=== PATIENT | female | born 1990 | race Asian ===

== ENCOUNTER 2023-04-11 09:39 | Outpatient (CLI) | payer MEDICAID, OTHER ==
[~2023-04-11 09:39] MED LIST: iohexol 300 MG/1 ML 50ml polymer ONE; iohexol 300mg/ml 100ml inj. ONE
== END 2023-04-11 23:59 | disposition home or self-care (01) ==
LOC: RAD 09:39
PROVIDERS: ATTEND Internal Medicine
DX: J96.01 Acute respiratory failure with hypoxia (principal); R41.82 Altered mental status, unspecified; R50.9 Fever, unspecified; I51.7 Cardiomegaly; Z95.0 Presence of cardiac pacemaker
CPT/HCPCS: 70470; 74178; J3490; Q9967